=== PATIENT | male | born 1985 | race Caucasian/White ===

== ENCOUNTER 2021-09-23 18:00 | Outpatient (CLI) | payer MEDICAID ==
[2021-09-23] MEDS ORDERED: HydrOXYzine PAMOATE 25 MG CAPSULE PO PRN (19:30)
[2021-09-23 19:56] LABS: GLUCOMETER DEV NAME(LOC) POC.BV
[2021-09-23 20:08] VITALS: BP 130/75
[2021-09-23 20:18] VITALS: BP 130/75
[2021-09-23] MEDS: IBUPROFEN 600 MG TABLET PO SCH (20:34)
[2021-09-23] MEDS: OLANZapine 10 MG TABLET PO SCH (20:34)
[2021-09-24] MEDS: OLANZapine 10 MG TABLET PO SCH (08:26)
[2021-09-24] MEDS: IBUPROFEN 600 MG TABLET PO SCH (08:27)
[2021-09-24 08:44] VITALS: BP 108/74
[2021-09-24] MEDS ORDERED: ESCITALOPRAM OXALATE 10 MG TABLET PO ONE (09:00)
== END 2021-09-24 10:15 | disposition home or self-care (01) ==
LOC: CSU 18:00
PROVIDERS: ATTEND Psychiatry & Neurology Psychiatry
DX: F29 Unspecified psychosis not due to a substance or known physiological condition (principal); F33.1 Major depressive disorder, recurrent, moderate; F10.20 Alcohol dependence, uncomplicated; F39 Unspecified mood [affective] disorder; F41.9 Anxiety disorder, unspecified; Z20.822 Contact with and (suspected) exposure to COVID-19
CPT/HCPCS: 90792; Z7610